=== PATIENT | female | born 1970 | race Caucasian/White ===

== ENCOUNTER 2017-05-20 14:53 | Emergency (ER) | payer OTHER ==
[2017-05-20 15:01] VITALS: BP 143/86; PULSE 66; TEMP 97.6; BMI 26.6
--- NOTE | 2017-05-20 15:41 | PDOC ---
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 Pt denies any blood exposure. Pt has no medical history no allergies. Timing: just prior to arrival Severity: mild Exposed Location: Bilateral: Face Past History - Past Medical History Allergies/Adverse Reactions: Allergies Allergy/AdvReac Type Severity Reaction Status Date / Time No Known Allergies Allergy Verified 05/20/17 14:57 Home Medications: Ambulatory Orders NK [No Known Home Medication] 04/08/16 COPD: No DVT: No Thyroid Disease: No - Suicide/Smoking/Psychosocial Hx Smoking Status: No Smoking History: Never smoked Have you smoked in the past 12 months: No Number of Cigarettes Smoked Daily: 0 Information on smoking cessation initiated: No Hx Alcohol Use: No Drug/Substance Use Hx: No Substance Use Type: None General Medical PMHX - Other General PMHX Angina: No Cardiac Arrhythmia: No Arthritis: No GERD: No Glaucoma: No [place]: No GI Ulcer Disease: No Peripheral Vascular Disease: No Review of Systems - Review of Systems Able to Perform ROS?: Yes Is the patient limited Welsh proficient: No Constitutional: No: Symptoms Reported HEENTM: No: Symptoms Reported Respiratory: No: Symptoms reported Cardiac (ROS): No: Symptoms Reported ABD/GI: No: Symptoms Reported : No: Symptoms Reported Musculoskeletal: No: Symptoms Reported Integumentary: Yes: Symptoms Reported *Physical Exam - Vital Signs Last Vital Signs Temp Pulse Resp BP Pulse Ox 97.6 F 66 18 143/86 100 05/20/17 14:58 05/20/17 14:58 05/20/17 14:58 05/20/17 14:58 05/20/17 14:58 - Physical Exam General Appearance: Yes: Nourished, Appropriately Dressed HEENT: positive: EOMI, CINDY, Normal ENT Inspection, TMs Normal, Pharynx Normal Neck: positive: Supple Respiratory/Chest: positive: Lungs Clear, Normal Breath Sounds Cardiovascular: positive: Regular Rhythm, Regular Rate Gastrointestinal/Abdominal: positive: Normal Bowel Sounds, Soft Musculoskeletal: positive: Normal Inspection Extremity: positive: Normal Capillary Refill, Normal Inspection, Normal Range of Motion Post Exposure - ED Protocol - Exposure Treatment Washing/Decontamination: Soap/Water Source Patient HIV Status:: HIV Positive Is PEP indicated?: No Prophylaxis for HIV discussed?: Yes Prophylaxis given?: No - Referrals Employee Referred to Employee Health:: Yes Medical Decision Making - Medical Decision Making 05/20/17 15:41 cc: states a patient was talking and as she was talking some saliva got into her face pt washed her face right away pt has no broken skin on her face pt is requesting HIV test and Hepatitis test no indication for PEP as pt was exposed by saliva, small amounts to the face pt will follow with employee health *DC/Admit/Observation/Transfer Diagnosis at time of Disposition: Employee exposure to body fluids - Discharge Dispostion Disposition: HOME Condition at time of disposition: Good - Referrals Referrals: Swati Sykes MD [Primary Care Provider] - - Patient Instructions Additional Instructions: follow with the employee health department next business day that you are working - Post Discharge Activity Forms/Work/School Notes: Back to Work
[2017-05-20 17:12] LABS: ALBUMIN 4.2 g/dl (3.4-5.0); ALK PHOS 47 U/L (45-117); BILIRUBIN,DIRECT < 0.2 mg/dL (0.0-0.2); BILIRUBIN,TOTAL 0.4 mg/dL (0.2-1.0); SGOT/AST 15 U/L (15-37); SGPT/ALT 26 U/L (12-78); TOT PROT 7.6 g/dl (6.4-8.2)
== END 2017-05-20 17:50 | disposition home or self-care (01) ==
LOC: JER 14:53 → JERFT 14:53
DX: Z77.21 Contact with and (suspected) exposure to potentially hazardous body fluids (principal); X58.XXXA Exposure to other specified factors, initial encounter; Y93.F9 Activity, other caregiving; Y92.238 Other place in hospital as the place of occurrence of the external cause; Y99.0 Civilian activity done for income or pay
CPT/HCPCS: 36415; 80074; 80076; 86803; 87389; 99281-25